=== PATIENT | female | born 1995 | race Caucasian/White ===

== ENCOUNTER 2017-06-23 14:12 | Emergency (ER) | payer SELFPAY ==
[2017-06-23 16:16] VITALS: BP 128/76
== END 2017-06-23 16:16 | disposition home or self-care (01) ==
LOC: ED 14:12
DX: N61.0 Mastitis without abscess (principal)

== ENCOUNTER 2019-11-04 17:10 | Emergency (ER) | payer MEDICAID ==
[~2019-11-04] VITALS: Ht 157.5 cm; Wt 59.9 kg
[2019-11-04 17:16] VITALS: Ht 157.5 cm; Wt 59.9 kg
[2019-11-04 18:12] LABS: BASOPHIL % 0.4 % (0-2); PLATELET COUNT 296 x10^3mcL (130-400); RED CELL DISTRIBUTION WIDTH 13.2 % (11.5-14.5)
[2019-11-04 18:13] LABS: CALCIUM 9.2 mg/dL (8.5-10.1); CARBON DIOXIDE 25.4 mmol/L (21-32); CHLORIDE SERUM 101 mmol/L (98-107); CREATININE SERUM 0.9 mg/dL (0.6-1.0); GFR1 > 60 mL/min; GLUCOSE SERUM 96 mg/dL (74-106); POTASSIUM SERUM 3.6 mmol/L (3.5-5.1); SODIUM SERUM 136 mmol/L (136-145)
[2019-11-04 18:17] LABS: ALBUMIN 3.8 g/dL (3.4-5.0); ALKALINE PHOSPHATASE 67 U/L (46-116); ALT/SGPT 24 U/L (14-59); AMYLASE 85 U/L (25-115); AST/SGOT 14 U/L (15-37); BILIRUBIN TOTAL 0.8 mg/dL (0.20-1.00); LIPASE 85 IU/L (73-393); TOTAL PROTEIN, SERUM 7.9 g/dL (6.4-8.2)
[2019-11-04 19:14] LABS: UA SPECIFIC GRAVITY <=1.005 (1.005-1.035); microscopic required? YES; urine erythrocyte 3+ (NEGATIVE)
[2019-11-04 20:05] VITALS: BP 110/74
== END 2019-11-04 20:05 | disposition home or self-care (01) ==
LOC: ED 17:10
PROVIDERS: Emergency Medicine
DX: N12 Tubulo-interstitial nephritis, not specified as acute or chronic (principal); N39.0 Urinary tract infection, site not specified
CPT/HCPCS: 36415; J1885; Q0092